=== PATIENT | female | born 1960 ===

== ENCOUNTER 2016-11-13 10:32 | Outpatient (CLI) | payer OTHER | END 2016-11-13 10:33 | LOC: LABRHC 10:32 | PROVIDERS: ATTEND Family Medicine | DX: Z12.4 Encounter for screening for malignant neoplasm of cervix (principal); Z01.419 Encounter for gynecological examination (general) (routine) without abnormal findings | CPT/HCPCS: 88148; G0143 ==

== ENCOUNTER 2017-11-15 10:04 | Outpatient (CLI) | payer OTHER | END 2017-11-15 10:05 | LOC: LABRHC 10:04 | PROVIDERS: ATTEND Family Medicine | DX: Z01.419 Encounter for gynecological examination (general) (routine) without abnormal findings (principal) | CPT/HCPCS: 88148; G0143 ==